=== PATIENT | male | born 1975 | race Caucasian/White ===

== ENCOUNTER 2017-04-14 05:11 | Day surgery (SDC) | payer OTHER ==
[~2017-04-14] VITALS: Ht 190.5 cm; Wt 118.0 kg
[~2017-04-14 05:11] MED LIST: LISI-725 PO
[2017-04-14 05:31] VITALS: BP 131/84; PULSE 76; TEMP 36.7; O2SAT 97; Ht 190.5 cm; Wt 118.0 kg
[2017-04-14] MEDS ORDERED: FENO48TA9 PO (05:52)
[2017-04-14] MEDS ORDERED: SIMV10TA2 PO (05:52)
[2017-04-14] MEDS ORDERED: CEFAZOLIN 2000MG IV PUSH 10 ML IV SCH (06:00)
[2017-04-14] MEDS ORDERED: LACTATED RINGER'S 1000ML 1,000 ML IV SCH (06:00)
[2017-04-14] MEDS ORDERED: MIDAZOLAM HCL 1 MG/ML 2ML VIAL ONE (06:56)
[2017-04-14] MEDS ORDERED: FENTANYL CITRATE INJ 50 MCG/1 ML 2 ML VIAL ONE (06:56)
[2017-04-14] MEDS ORDERED: BUPIVACAINE 0.5 % 5 MG/1 ML MPF 30ML VIAL ONE (06:58)
[2017-04-14] MEDS ORDERED: LIDOCAINE HCL 1% 20 ML VIAL ONE (06:59)
--- NOTE | 2017-04-14 07:02 | History & Physical Bridge Note ---
H&P Re-Evaluation Bridge Note: I have examined the patient, reviewed the History & Physical and in the interval since the performance of the History & Physical I have noted the following changes of clinical significance: No changes noted
[2017-04-14] MEDS ORDERED: ONDANSETRON INJ 2 MG/ML 2 ML VIAL ONE (07:40)
[2017-04-14] MEDS ORDERED: LIDOCAINE HCL 2% 2 ML VIAL (20MG/ML) ONE (07:40)
[2017-04-14] MEDS ORDERED: PROPOFOL IV EMULSION 10 MG/ML 20 ML VIAL IV ONE (07:40)
[2017-04-14] MEDS ORDERED: DEXAMETHASONE SOD INJ 4 MG/ML VIAL ONE (07:40)
[2017-04-14] MEDS ORDERED: PROMETHAZINE HCL INJ 6.25 MG in SODIUM CHLORIDE 0.9% 50ML 50 ML IV PRN (07:45)
[2017-04-14] MEDS ORDERED: ATROPINE SULFATE 0.1 MG/ML 5ML SYR IV PRN (07:45)
[2017-04-14] MEDS ORDERED: EpHEDrine SULFATE INJ 50 MG/ML AMP IV PRN (07:45)
[2017-04-14] MEDS ORDERED: FENTANYL CITRATE INJ 50 MCG/1 ML 2 ML VIAL IV PRN (07:45)
[2017-04-14] MEDS ORDERED: ONDANSETRON INJ 2 MG/ML 2 ML VIAL IV PRN ×2 (07:45→08:45)
[2017-04-14] MEDS ORDERED: BACITRACIN OINT 15 GM TUBE ONE (08:25)
--- NOTE | 2017-04-14 08:26 | [facility] Post Operative Brief Note ---
Immediate Operative Summary Operative Date Apr 14, 2017. Pre-Operative Diagnosis Right inguinal hernia Post-Operative Diagnosis same as preoperative diagnosis Procedure(s) Performed Open Repair Right Inguinal Hernia with Mesh Surgeon Dr. Peralta [employer] Sales Consultant Surgeon(s) Sara Brito PA-C Estimated Blood Loss 10ml Findings right indirect and direct hernia Fluids (cc crystalloids) 1000ml Specimens none per surgeon Drains none Anesthesia LMA+ local Complication(s) None Disposition Recovery Room / PACU
[2017-04-14] MEDS ORDERED: OXYC-57 PO (08:36)
--- NOTE | 2017-04-14 08:40 | Discharge Instructions ---
Discharge Instructions Date of Service Apr 14, 2017. Admission Reason for Admission: Right Inguinal Hernia Discharge Discharge Diagnosis / Problem: same Discharge Goals Goal(s): Decrease discomfort, Improve function Activity Recommendations Activity Limitations: as noted below No heavy lifting over 10 pounds for 4-6 weeks No strenuous activity until cleared by surgeon No submerging incisions underwater for 2 weeks (no bathing, swimming, or hot tubs) No driving while taking narcotic pain medication or until you are pain free . Instructions / Follow-Up Instructions / Follow-Up You may shower in 4 days and then remove dressings. Sponge bath and wash hair in meantime Remove dressing after 4 days, shower, and then replace daily Leave steri strips on incision for 7 days and then remove Walking and light activity is encouraged You will be given Narcotic pain medication as needed for moderate to severe pain. You may take Ibuprofen/Tylenol as needed for mild pain. Follow-up in surgical office in 1-2 weeks as scheduled, please call office at [phone] if you do not already have an appointment Current Hospital Diet Patient's current hospital diet: Discharge Diet Recommended Diet: Regular Diet Procedures Procedures Performed: Open Repair Right Inguinal Hernia with Mesh Pending Studies Studies pending at discharge: no Medical Emergencies . Who to Call and When: Medical Emergencies: If at any time you feel your situation is an emergency, please call 911 immediately. . Non-Emergent Contact Non-Emergency issues call your: Primary Care Provider, Surgeon Call Non-Emergent contact if: you have a fever, temperature is above 101, your pain is not controlled, your pain is worsening, your pain is unusual for you, wound has increased drainage, wound has increased redness, wound has increased pain . "Provider Documentation" section prepared by Sara Brito. . VTE Core Measure Inpt VTE Proph given/why not?: SCD's [place] Drug Monitoring Program Search Results: patient reviewed within database, no issues identified
[2017-04-14] MEDS ORDERED: MoRPHine SULFATE 2 MG/ML CARP IV PRN ×2 (08:45)
[2017-04-14] MEDS ORDERED: ACETAMINOPHEN 325 MG TAB PO PRN (08:45)
[2017-04-14] MEDS ORDERED: MoRPHine SULFATE 4 MG/ML 1 ML CARP\\VIAL IV PRN (08:45)
[2017-04-14] MEDS ORDERED: OXYCODONE/ACETAMINOPHEN 5-325 TAB PO PRN ×2 (08:45)
--- NOTE | 2017-04-14 09:08 | Anesthesiology Progress Note ---
Anesthesia Post Op Note Date & Time Apr 14, 2017 at 09:08 Vital Signs Pain Intensity: 0 Vital Signs Past 12 Hours Date Time Temp Pulse Resp B/P (MAP) Pulse Ox O2 Delivery O2 Flow Rate FiO2 04/14/17 09:05 37.0 88 19 118/81 93 Room Air 04/14/17 08:55 85 15 133/78 97 Oxymask 10 04/14/17 08:45 86 16 123/87 96 Oxymask 10 04/14/17 08:35 36.4 87 12 141/97 96 Oxymask 10 04/14/17 05:31 36.7 76 16 131/84 (100) 97 Room Air Notes Mental Status: alert / awake / arousable, participated in evaluation Pt Amnestic to Procedure: Yes Nausea / Vomiting: adequately controlled Pain: adequately controlled Airway Patency, RR, SpO2: stable & adequate BP & HR: stable & adequate Hydration State: stable & adequate Anesthetic Complications: no major complications apparent
[2017-04-14 09:27] VITALS: BP 132/80; PULSE 93; TEMP 36.5; O2SAT 95
[2017-04-14] MEDS ORDERED: OXYCODONE/ACETAMINOPHEN 5-325 TAB ONE ×2 (09:36→09:56)
[2017-04-14 09:51] VITALS: BP 127/87; PULSE 95; TEMP 36.5; O2SAT 95
--- NOTE | 2017-04-14 10:13 | OPERATIVE REPORT ---
DATE OF OPERATION: 04/14/2017 PREOPERATIVE DIAGNOSIS: Right inguinal hernia. POSTOPERATIVE DIAGNOSIS: Same. OPERATION: Open repair, right inguinal hernia with mesh. SURGEON: Raymond Peralta MD. ANESTHESIA: LMA plus local. GENERAL DENTIST/OWNER: Sara Brtio PA-C. IV FLUIDS: 1000 mL. ESTIMATED BLOOD LOSS: About 10 mL. FINDINGS: Right indirect and direct hernia. COMPLICATIONS: None. INDICATIONS FOR THE PROCEDURE: This is a 41-year-old gentleman who presented with symptomatic right inguinal hernia. The patient will be required to do open repair of right inguinal hernia with mesh. I did talk to the patient about the benefit, risk, alternate procedure. I indicated the risks may include but not limited such as bleeding, infection, hernia recurrence, chronic incision pain, seroma, complication related to the mesh. The patient understands. He signed informed consent and he agreed to proceed with the procedure. I answered all questions. DETAILS OF PROCEDURE: We brought the patient to the OR, put the patient in the supine position. The patient received SCD on bilateral legs to prevent DVT. Also, the patient received 2 grams Ancef IV for prophylactic antibiotic. The patient received general anesthesia with LMA without difficulty. The abdomen was prepped and draped in routine sterile fashion. After a timeout, I injected local anesthesia by using 1% lidocaine mixed with 0.5% Marcaine on the right inguinal area. Then I made about a 4 cm incision on the right inguinal area and opened the external oblique, mobilized the cord structure and found the patient has direct and indirect hernia. The indirect sac was reduced to the abdominal cavity. Then I chose large plug to pull out the indirect hernia. Then I used another 3 x 5 cm Prolene mesh to reinforce the posterior wall to blockage direct hernia by using 2-0 Vicryl Prolene suture mesh to the conjoined tendon laterally. I used a 2-0 Prolene suture mesh to the right inguinal ligament. Two suture meeting together, tied and hemostasis obtained. Then I used 2-0 Vicryl, closed the external oblique with continuous running and then I used 2-0 Vicryl to close subcutaneous layer continuous running and used a 4-0 Vicryl to close the skin continuous running. Then we put the dressing on. The patient tolerated the procedure well. All the instrument, needle and sponge count correct x2 at the end of the case. After the procedure, the patient transported to recovery room in stable condition. After the procedure, I did talk to the patient's family member about the OR finding and procedure we did. Also, I gave them postop care instruction, they understand. I attest to the content of the Intraoperative Record and any orders documented therein. Any exceptions are noted below. LOIS
[2017-04-14 10:22] VITALS: BP 134/85; PULSE 87; TEMP 36.4; O2SAT 97
[2017-04-15] MEDS ORDERED: CEFAZOLIN SOD 2000MG/10 ML IV PUSH IV ONE (06:00)
== END 2017-04-14 10:30 | disposition home or self-care (01) ==
LOC: C.ACU 05:11
PROVIDERS: ATTEND Surgery
DX: K40.90 Unilateral inguinal hernia, without obstruction or gangrene, not specified as recurrent (principal); I12.9 Hypertensive chronic kidney disease with stage 1 through stage 4 chronic kidney disease, or unspecified chronic kidney disease; N18.9 Chronic kidney disease, unspecified; E78.5 Hyperlipidemia, unspecified; N18.3 Chronic kidney disease, stage 3 (moderate); Z98.890 Other specified postprocedural states; Z83.3 Family history of diabetes mellitus; Z82.49 Family history of ischemic heart disease and other diseases of the circulatory system